=== PATIENT | male | born 1955 | race Caucasian/White ===

== ENCOUNTER 2023-10-23 10:25 | Day surgery (SDC) | payer MEDICARE ==
[2023-10-23] MEDS ORDERED: MIDAZOLAM 2 MG/2 ML VIAL ONE (10:52)
[2023-10-23] MEDS: LACTATED RINGERS 1,000 ML IV ONE ×2 (10:52→11:44)
--- NOTE | 2023-10-23 11:18 | ANESTHESIA ---
Pre-Anesthesia VS, & Labs - Diagnosis hx of colon ca - Procedure colonoscopy Vital Signs: Temp Pulse Resp BP Pulse Ox O2 Flow Rate 36.5 C 76 16 154/79 H 97 10/23/23 10:44 10/23/23 10:44 10/23/23 10:44 10/23/23 10:44 10/23/23 10:44 Height: 6 ft 1 in Weight (kg): 105.6 kg Body Mass Index: 30.7 BMI Classification: Obese - NPO >8 hours Last Fluid Intake: am prep - Lab Results Lab results reviewed: Yes Home Medications and Allergies Losartan/Hydrochlorothiazide [Hyzaar 50-12.5 Tablet] 1 each PO DAILY 08/20/23 Mecobalamin [B12 Active] 1,000 mcg PO DAILY 08/20/23 Rosuvastatin Calcium [Crestor] 10 mg PO DAILY 08/20/23 Sildenafil Citrate [Sildenafil] 20 mg PO PRN PRN 08/20/23 Allergies/Adverse Reactions: Allergies Allergy/AdvReac Type Severity Reaction Status Date / Time Penicillins Allergy Rash Verified 10/22/23 13:21 Anes History & Medical History - Anesthetic History Anesthesia Complications: reports: No previous complications Family history of Anesthesia Complications: Denies Family history of Malignant Hyperthermia: Denies - Medical History Cardiovascular: reports: Hypertension, High cholesterol Pulmonary: reports: None Gastrointestinal: reports: None Urinary: reports: None Musculoskeletal: reports: Osteoarthritis Endocrine/Autoimmune: reports: None Skin: reports: None - Surgical History General: reports: Bowel surgery Exam General: Alert, Oriented x3, Cooperative Dental: WNL Mouth Openin Fingerbreadth Neck Mobility: Normal Mallampati classification: II Thyromental Distance: 4-6 cm Respiratory: Lungs clear, Normal breath sounds, No respiratory distress Cardiovascular: Regular rate Neurological: Normal speech Mental/Cognitive Status: Alert/Oriented X3, Normal for patient Cognitive Status: Within normal limits Plan Anesthesia Type: Total IV Consent for Procedure(s) Verified and Reviewed: Yes Code Status: Attempt Resuscitation ASA classification: 2-Mild systemic disease Is this case an emergency?: No
[2023-10-23] MEDS: SIMETHICONE 40 MG/0.6 ML 15 ML BOTTLE PO ONE (11:31)
--- NOTE | 2023-10-23 11:50 | ANESTHESIA POST OP EVALUATION ---
Anesthesia Post Eval - Post Anesthesia Eval Vitals: Last Vital Signs Temp 36.5 C 10/23/23 10:44 Pulse 76 10/23/23 10:44 Resp 16 10/23/23 10:44 BP 154/79 H 10/23/23 10:44 Pulse Ox 97 10/23/23 10:44 O2 Flow Rate CV Function Including HR & BP: Stable Pain Control: Satisfactory Nausea & Vomiting: Negative Mental Status: Baseline Respiratory Status: Airway Patent Hydration Status: Satisfactory Anesthesia Complications: None
[2023-10-23 12:04] VITALS: BP 109/61
[2023-10-23 12:14] VITALS: O2SAT 57
== END 2023-10-23 10:26 | disposition home or self-care (01) ==
LOC: SDS 10:25
PROVIDERS: ATTEND Surgery
DX: Z12.11 Encounter for screening for malignant neoplasm of colon (principal); Z85.038 Personal history of other malignant neoplasm of large intestine; Z90.49 Acquired absence of other specified parts of digestive tract; Z87.891 Personal history of nicotine dependence; I10 Essential (primary) hypertension; E11.9 Type 2 diabetes mellitus without complications; E78.5 Hyperlipidemia, unspecified; Z98.0 Intestinal bypass and anastomosis status; E66.9 Obesity, unspecified; Z68.30 Body mass index [BMI] 30.0-30.9, adult
CPT/HCPCS: A9270; G0105; J7120

== ENCOUNTER 2025-05-15 15:00 | Inpatient (IN) ==
--- OUTSIDE RECORDS SUMMARY | 2025-05-15 15:17 | EXTERNAL MEDICAL SUMMARY RPT | Continuity of Care Document ---
Author Organization [place] Address [address] [address] Phone Problems date description facility 2025-03-02 08:29 Malignant neoplasm of colon, un specified [email or web address] 2025-03-02 15:25 Encounter for follow -up examination after completed treatment for malignant neoplasm [email or web address] 2025-03-03 00:03 Malignant neoplasm of colon, un specified [facility] 2025-03-08 06:54 Malignant neoplasm of colon, un specified [facility] 2025-03-08 06:54 Deficiency of other specified B group vitamins [email or web address] 2025-03-08 06:54 Drug-induced polyneuropathy [facility] 2025-03-08 06:54 Adverse effect of an tineoplastic and immunosuppressive drugs, initial encounter [email or web address] 2025-03-08 06:54 Encounter for genera l adult medical examination without abnormal findings [email or web address] 2025-03-08 06:54 Encounter for follow -up examination after completed treatment for malignant neoplasm [email or web address] Results/Labs test date facility value unit notes Result panel 1 NUCLEATED RED BLOOD CELLS AUTO 2025-03-02 08:41 [facility] 0.0 /100wbc (missing) BASOPHILS # (AUTO) 2025-03-02 08:41 [facility] 0.0 10 3/ul (missing) NRBC ABSOLUTE COUNT (AUTO) 2025-03-02 08:41 [facility] 0.00 x10 3/ul (missing) EOSINOPHILS # (AUTO) 2025-03-02 08:41 [facility] 0.1 10 3/ul (missing) MONOCYTES # (AUTO) 2025-03-02 08:41 [facility] 0.4 10 3/ul (missing) CREATININE 2025-03-02 08:41 [facility] 1.0 mg/dl As of March 2023 testing method has changed, this may include reference ranges. BILIRUBIN,TOTAL 2025-03-02 08:41 [facility] 1.1 mg /dl As of March 2023 testing method has changed, this may include reference ranges. LYMPHOCYTES # (AUTO) 2025-03-02 08:41 [facility] 1.2 10 3/ul (missing) ALBUMIN/GLOBULIN RATIO 2025-03-02 08:41 [facility] 1.8 (missing) (missing) MEAN PLATELET VOLUME 2025-03-02 08:41 [facility] 10.2 fl (missing) CHLORIDE 2025-03-02 08:41 [facility] 104 mmol/l As of March 2023 testing method has changed, this may include reference ranges. RED CELL DISTRIBUTION WIDTH 2025-03-02 08:41 [facility] 11.9 % (missing) GLUCOSE 2025-03-02 08:41 [facility] 130 mg/dl As of March 2023 testing method has changed, this may include reference ranges. SODIUM 2025-03-02 08:41 [facility] 138 mmol/l (missing) HGB - HEMOGLOBIN 2025-03-02 08:41 [facility] 14.5 g /dl (missing) PLT - PLATELET COUNT 2025-03-02 08:41 [facility] 165 10 3/ul (missing) ALT ALANINE AMINOTRANSFERASE 2025-03-02 08:41 [facility] 18 iu/l As of March 2023 testing method has changed, this may include reference ranges. GLOBULIN 2025-03-02 08:41 [facility] 2.4 g/dl (missing) NEUTROPHILS # (AUTO) 2025-03-02 08:41 [facility] 2.8 10 3/ul (missing) BUN - BLOOD UREA NITROGEN 2025-03-02 08:41 [facility] 21 mg/dl As of Mar testing method has changed, this may include reference ranges. AST ASPARTATE AMINOTRANSFERASE 2025-03-02 08:41 [facility] 22 iu/l As of March 2023 testing method has changed, this may include reference ranges. CARBON DIOXIDE - CO2 2025-03-02 08:41 [facility] 28 mmol/l As of March 2023 testing method has changed, this may include reference ranges. CEA - CARCINOEMBRYONIC ANTIGEN 2025-03-02 08:41 [facility] 3.6 ng/ml Social History date description facility
[2025-05-15 15:23] LABS: HCT - HEMATOCRIT 51.2 % (42.0-52.0); HGB - HEMOGLOBIN 17.2 g/dL (14.0-18.0); MEAN PLATELET VOLUME 10.5 fL (7.4-11.4); NRBC ABSOLUTE COUNT (AUTO) 0.00 x10^3/uL; NUCLEATED RED BLOOD CELLS AUTO 0.0 /100WBC; PLT - PLATELET COUNT 202 10^3/uL (130-450); RED CELL DISTRIBUTION WIDTH 12.6 % (12.0-15.0)
--- NOTE | 2025-05-15 15:42 | ED Physician Documentation ---
History of Present Illness Stated complaint Stated Complaint: PX,N/V/D Chief complaint Chief Complaint: Abd Pain History obtained from History obtained from: Patient Additonal information Additional information: 69-year-old gentleman with history of 2 colon resections in the past for cancer developed symptomatic COVID 6 days ago. He was getting better but starting last night he developed initially left and then central abdominal pain associated with vomiting and lack of bowel movements and really no flatus. No history of SBO in the past. Meds/Allgy Home Medications Ambulatory Orders Medication Instructions Recorded Confirmed losartan 50 mg-hydrochlorothiazide 1 ea PO DAILY 08/2003/02/25 12.5 mg tablet (Hyzaar) mecobalamin (vitamin B12) 1,000 1,000 mcg PO DAILY 03/02/25 mcg chewable tablet (B12 Active) rosuvastatin 10 mg tablet (Crestor) 10 mg PO DAILY 03/02/25 sildenafil (pulm.hypertension) 20 20 mg PO PRN PRN As Needed Per 08/20/23 03/02/25 mg tablet Provider Orders cholecalciferol (vitamin D3) 100 100 mcg PO QDAY 03/0203/02/25 mcg (4,000 unit) tablet Allergies Allergies Allergy/AdvReac Type Severity Reaction Status Date / Time Penicillins Allergy Rash Verified 05/15/25 15:04 PFSH Active Problems All Active Problems (Updated 05/15/25 @ 18:10 by Aneesh Hartley MD) COVID-19 (Acute) Acute hypoxemic respiratory failure (Acute) Small bowel obstruction (Acute) Healthcare maintenance (Acute) Vitamin B12 deficiency (Acute) Chemotherapy-induced peripheral neuropathy (Acute) 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 (Date/Year): 1985 Number of Years Smoked: 15 Patient requests smoking cessation consult: No Marital Status: Support Person: Yes How many days per week?: 6 Do you feel safe in your home environment?: Yes History of physical, verbal, emotional, or financial abuse?: No ETOH Use: Wine and Beer Service: No Exam Exam Vital Signs: Vital Signs x48h Temp Pulse Resp BP Pulse Ox O2 Flow Rate 05/15/25 17:32 95 2 05/15/25 17:30 85 L 05/15/25 17:00 87 20 146/88 H 95 05/15/25 16:07 95 2 05/15/25 16:07 87 L 05/15/25 15:50 37.2 C 78 78 H 161/88 H 92 05/15/25 15:02 36.6 C 87 18 151/94 H 95 Constitutional normal general appearance and no apparent distress Gastrointestinal Absent bowel sounds, mild diffuse tenderness without surgical signs. Results Vitals Vitals: Vital Signs - 24 hr 05/15/25 15:02 05/15/25 15:50 05/15/25 15:53 Temperature 36.6 C 37.2 C Temperature Source Temporal Artery Scan Oral Pulse Rate 87 78 Respiratory Rate 18 78 H Blood Pressure 151/94 H 161/88 H O2 Saturation 95 92 O2 Source Room air Room air If not protocol: Oxygen Flow, liters/minute Pain Intensity 4 6 05/15/25 16:07 05/15/25 16:07 05/15/25 16:30 Temperature Temperature Source Pulse Rate Respiratory Rate Blood Pressure O2 Saturation 87 L 95 O2 Source Room air Nasal cannula If not protocol: Oxygen Flow, liters/minute 2 Pain Intensity 1 05/15/25 17:00 05/15/25 17:30 05/15/25 17:32 Temperature Temperature Source Pulse Rate 87 Respiratory Rate 20 Blood Pressure 146/88 H O2 Saturation 95 85 L 95 O2 Source Room air Room air Nasal cannula If not protocol: Oxygen Flow, liters/minute 2 Pain Intensity Oxygen O2 Source Nasal cannula Labs Labs: Laboratory Tests 05/15/25 05/15/25 15:18 17:00 WBC 7.0 RBC 5.39 Hgb 17.2 Hct 51.2 MCV 95.0 H MCH 31.9 H MCHC 33.6 RDW 12.6 Plt Count 202 MPV 10.5 Neut # (Auto) 5.6 Lymph # (Auto) 0.7 L [place] # (Auto) 0.7 Eos # (Auto) 0.0 Baso # (Auto) 0.0 Absolute Nucleated RBC 0.00 Nucleated RBC % 0.0 Sodium 136 Potassium 4.2 Chloride 93 L Carbon Dioxide 30 Anion Gap 13.0 BUN 31 H Creatinine 1.5 H Estimated GFR (MDRD) 46 L Glucose 150 H Calcium 10.5 H Total Bilirubin 1.2 H AST 24 ALT 20 Alkaline Phosphatase 72 Total Protein 8.7 Albumin 5.3 Globulin 3.4 Albumin/Globulin Ratio 1.6 Lipase 12 Urine Color DARK YELLOW Urine Clarity CLEAR Urine pH 6.0 Ur Specific [place] >=1.030 H Urine Protein NEGATIVE Urine Glucose (UA) NEGATIVE Urine Ketones NEGATIVE Urine Occult Blood NEGATIVE Urine Nitrite NEGATIVE Urine Bilirubin NEGATIVE Urine Urobilinogen 0.2 (NORMAL) Ur Leukocyte Esterase NEGATIVE Ur Microscopic Review NOT INDICATED Urine Culture Comments NOT INDICATED PD Medical Decision Making ED course ED course: 69-year-old gent with history of couple colonic resections presents with signs and symptoms very consistent with small bowel obstruction. Workup demonstrates an unremarkable CBC. CMP showing some TOMEKA. CT demonstrating obstruction versus ileus. He was comfortable after milligram of Dilaudid and 4 mg of Zofran here. Interestingly, he does have an oxygen requirement here despite not being narcotized, suspect that is from his COVID as opposed to the Dilaudid he got. Woke with Dr. Ross who will follow along and Dr. Umesh Granados for admission at 6:10 PM. The patient and family are counseled as to the diagnosis and need for admission. This document was made in part using voice recognition software, while efforts are made to proofread this document, sound alike an grammatical errors may occur. Discharge Plan Discharge Patient Disposition: 66 [facility] DC/Xfer Condition: Serious Clinical Impression: Small bowel obstruction, Acute hypoxemic respiratory failure, COVID-19 Prescriptions: No Action losartan-hydrochlorothiazide [Hyzaar] 1 EACH tablet 1 ea PO DAILY rosuvastatin [Crestor] 10 MG tablet 10 mg PO DAILY sildenafil (pulm.hypertension) 20 MG tablet 20 mg PO PRN PRN (Reason: As Needed Per Provider Orders) mecobalamin (vitamin B12) [B12 Active] 1,000 MCG tablet,chewable 1,000 mcg PO DAILY cholecalciferol (vitamin D3) 100 mcg (4,000 unit) tablet 100 mcg PO QDAY Print Language: Ecuadorean
[2025-05-15 15:49] LABS: ALT ALANINE AMINOTRANSFERASE 20.0 IU/L (10-60); AST ASPARTATE AMINOTRANSFERASE 24.0 IU/L (10-42); BUN - BLOOD UREA NITROGEN 31.0 mg/dL (6-20); CARBON DIOXIDE - CO2 30.0 mmol/L (21-32); CREATININE 1.5 mg/dL (0.6-1.3); GFR - MDRD 46.0 (>89)
[2025-05-15] MEDS: SODIUM CHLORIDE 0.9% 1,000 ML IV STA (15:51)
[2025-05-15] MEDS: ONDANSETRON 4 MG/2 ML VIAL IVP STA (15:53)
[2025-05-15] MEDS: HYDROmorphone 1 MG/ML CARPUJECT IVP STA (15:53)
[2025-05-15 17:11] LABS: GLUCOSE, URINE (UA) NEGATIVE (NEGATIVE); KETONES,URINE (UA) NEGATIVE (NEGATIVE); OCCULT BLOOD,URINE NEGATIVE (NEGATIVE)
--- NOTE | 2025-05-15 18:02 | CT Report ---
PROCEDURE: CT Abdomen/Pelvis W INDICATIONS: IV only, abd pain, ?sbo CONTRAST: 100ml omni 300 TECHNIQUE: After the administration of intravenous contrast, a CT scan of the abdomen and pelvis was performed. Images were recorded and evaluated at appropriate window settings. Reformats: coronal and sagittal. For radiation dose reduction, the following was used: automated exposure control, adjustment of mA and/or kV according to patient size. COMPARISON: 10/29/2023. FINDINGS: Image quality: Diagnostic. Lower chest: Unremarkable. Liver: No solid mass. Gallbladder: Unremarkable. Biliary tree: No intrahepatic or extrahepatic dilation, accounting for age. Spleen: No splenomegaly. Pancreas: No pancreatic ductal dilation. Adrenals: No adrenal nodule. Kidneys and ureters: No hydronephrosis. No renal cystic lesion which requires follow up. No solid mass. Stomach, bowel and peritoneum: There are multiple mildly dilated and distended loops of bowel measuring up to 4.2 cm in diameter. Multiple transition points are seen throughout the abdomen, some of which have a gradual appearance. Postsurgical changes of prior bowel resection are shown at the cecum and sigmoid colon. Lymph nodes: No central or retroperitoneal adenopathy. Vessels: No infrarenal aortic aneurysm. Patent portal vein. PELVIS Reproductive organs: Unremarkable. Bladder: No abnormal wall thickening. Pelvic lymph nodes: No pelvic adenopathy by size criteria. Bones: No aggressive osseous abnormality. Other: No significant ventral or inguinal hernia. IMPRESSION: Small bowel findings consistent with obstruction versus ileus. Reviewed by: Vanessa Hammer MD on 05/15/2025 5:01 PM SILVIA Approved by: Vanessa Hammer MD on 05/15/2025 5:01 PM AKDT Station ID: [id number]
[2025-05-15] MEDS ORDERED: DIATR MEGLU/DIATRIZOATE SODIUM 120 ML BOTTLE ONE (18:23)
--- NOTE | 2025-05-15 19:09 | HISTORY & PHYSICAL EXAMINATION ---
Chief Complaint Chief Complaint Chief Complaint: Abdominal pain History of Present Illness Admitted From Admitted From:: Home with History Obtained From History obtained from: Patient interview History of Present Illness HPI Comment/Other: 69-year-old male history of hypertension, colon cancer status post resection x 2 who began experiencing upper respiratory symptoms from COVID 6 days ago. He reported that his upper respiratory symptoms have improved, but starting last night he felt left-sided abdominal pain with significant amount of vomiting and no flatus. He has never had small bowel obstruction before. He reports that he had fevers and chills from his COVID, but those have improved. In the ER, workup was significant for a creatinine of 1.5, up from baseline of 1. No leukocytosis, UA clear. CT abdomen/pelvis was performed which showed small bowel ileus versus obstruction. General surgery was contacted by ER provider, who agrees to follow. Patient was also noted to be hypoxic in the ER, requiring 2 L O2. Hospitalist was contacted for admission for COVID with hypoxia in addition to small bowel obstruction Meds/Allgy Home Medications Ambulatory Orders Medication Instructions Recorded Confirmed losartan 50 mg-hydrochlorothiazide 1 ea PO DAILY 08/2003/02/25 12.5 mg tablet (Hyzaar) mecobalamin (vitamin B12) 1,000 1,000 mcg PO DAILY 03/02/25 mcg chewable tablet (B12 Active) rosuvastatin 10 mg tablet (Crestor) 10 mg PO DAILY 03/02/25 sildenafil (pulm.hypertension) 20 20 mg PO PRN PRN As Needed Per 08/20/23 03/02/25 mg tablet Provider Orders cholecalciferol (vitamin D3) 100 100 mcg PO QDAY 03/0203/02/25 mcg (4,000 unit) tablet Allergies Allergies Allergy/AdvReac Type Severity Reaction Status Date / Time Penicillins Allergy Rash Verified 05/15/25 15:04 PFSH Active Problems All Active Problems (Updated 05/15/25 @ 19:14 by ) COVID-19 (Acute) Acute hypoxemic respiratory failure (Acute) Small bowel obstruction (Acute) Healthcare maintenance (Acute) Vitamin B12 deficiency (Acute) Chemotherapy-induced peripheral neuropathy (Acute) 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 (Date/Year): 1985 Number of Years Smoked: 15 Patient requests smoking cessation consult: No Marital Status: Support Person: Yes How many days per week?: 6 Do you feel safe in your home environment?: Yes History of physical, verbal, emotional, or financial abuse?: No ETOH Use: Wine and Beer Service: No POLST Patient has POLST: No Review of Systems He reports COVID symptoms starting several days ago and improved, including fevers, chills, dyspnea, cough He reports abdominal symptoms including nausea/vomiting, abdominal pain, lack of bowel movement/flatus starting last night Status of ROS: 10 or more systems reviewed and unremarkable except as noted in history and below Exam Exam Vital Signs: Vital Signs x48h Temp Pulse Resp BP Pulse Ox O2 Flow Rate 05/15/25 18:34 153/84 H 05/15/25 18:29 71 16 64 L 2 05/15/25 17:32 95 2 05/15/25 17:30 85 L 05/15/25 17:00 87 20 146/88 H 95 05/15/25 16:07 95 2 05/15/25 16:07 87 L 05/15/25 15:50 37.2 C 78 78 H 161/88 H 92 05/15/25 15:02 36.6 C 87 18 151/94 H 95 Constitutional normal general appearance and no apparent distress [facility] normocephalic Eyes PERRL Neck/C-Spine visual inspection normal Lymph no lymphadenopathy noted Chest inspection of chest normal Respiratory breath sounds equal bilaterally and normal respiratory effort Cardiovascular normal heart rate noted and regular rhythm noted Gastrointestinal abdomen normal to inspection and abdomen soft to palpation Some tenderness to palpation on the left. Hypoactive bowel sounds Extremities normal to inspection Neurology GCS 15 Psychiatry oriented x3 Skin skin color normal Conclusion/Plan Problem List (1) Acute hypoxemic respiratory failure: Plan: Hypoxemic respiratory failure secondary to COVID-19, manage as below O2 as needed (2) Small bowel obstruction: Plan: CT abdomen/pelvis shows small bowel obstruction versus ileus Surgery contacted by ER provider I have ordered Gastrografin challenge N.p.o. until return of bowel function (3) COVID-19: Plan: Reports testing positive for COVID several days ago He now has an oxygen requirement Decadron 6 mg p.o. daily DuoNeb as needed Check procalcitonin Check chest x-ray Plan Admit inpatient med floor Full code His is his surrogate decision maker Lab Results Lab results reviewed: Yes 05/15/25 15:18 05/15/25 15:18 Diagnostic Imaging Results Diagnostic Imaging Results: positive Final report reviewed Core Measures Anticipated LOS I expect patient to be DC'd or transferred within 96 hours.: Yes DVT/VTE - Prophylaxis VTE/DVT Prophylaxis med ordered at admit?: Yes
--- OUTSIDE RECORDS SUMMARY | 2025-05-15 19:16 | EXTERNAL MEDICAL SUMMARY RPT | Continuity of Care Document ---
Author Organization [place] Address [address] [address] Phone Problems date description facility 2025-03-02 08:29 Malignant neoplasm of colon, un specified [facility] 2025-03-02 15:25 Encounter for follow -up examination after completed treatment for malignant neoplasm [facility] 2025-03-03 00:03 Malignant neoplasm of colon, un specified [facility] 2025-03-08 06:54 Malignant neoplasm of colon, un specified [facility] 2025-03-08 06:54 Deficiency of other specified B group vitamins [facility] 2025-03-08 06:54 Drug-induced polyneuropathy [facility] 2025-03-08 06:54 Adverse effect of an tineoplastic and immunosuppressive drugs, initial encounter [facility] 2025-03-08 06:54 Encounter for genera l adult medical examination without abnormal findings [facility] 2025-03-08 06:54 Encounter for follow -up examination after completed treatment for malignant neoplasm [facility] Results/Labs test date facility value unit notes Result panel 1 NUCLEATED RED BLOOD CELLS AUTO 2025-03-02 08:41 [facility] 0.0 /100wbc (missing) BASOPHILS # (AUTO) 2025-03-02 08:41 [facility] 0.0 10 3/ul (missing) NRBC ABSOLUTE COUNT (AUTO) 2025-03-02 08:41 [facility] 0.00 x10 3/ul (missing) EOSINOPHILS # (AUTO) 2025-03-02 08:41 [facility] 0.1 10 3/ul (missing) MONOCYTES # (AUTO) 2025-03-02 08:41 [facility] 0.4 10 3/ul (missing) CREATININE 2025-03-02 08:41 [facility] 1.0 mg/dl As of March 2023 testing method has changed, this may include reference ranges. BILIRUBIN,TOTAL 2025-03-02 08:41 [facility] 1.1 mg /dl As of March 2023 testing method has changed, this may include reference ranges. LYMPHOCYTES # (AUTO) 2025-03-02 08:41 [facility] 1.2 10 3/ul (missing) ALBUMIN/GLOBULIN RATIO 2025-03-02 08:41 [facility] 1.8 (missing) (missing) MEAN PLATELET VOLUME 2025-03-02 08:41 [facility] 10.2 fl (missing) CHLORIDE 2025-03-02 08:41 [facility] 104 mmol/l As of March 2023 testing method has changed, this may include reference ranges. RED CELL DISTRIBUTION WIDTH 2025-03-02 08:41 [facility] 11.9 % (missing) GLUCOSE 2025-03-02 08:41 [facility] 130 mg/dl As of March 2023 testing method has changed, this may include reference ranges. SODIUM 2025-03-02 08:41 [facility] 138 mmol/l (missing) HGB - HEMOGLOBIN 2025-03-02 08:41 [facility] 14.5 g /dl (missing) PLT - PLATELET COUNT 2025-03-02 08:41 [facility] 165 10 3/ul (missing) ALT ALANINE AMINOTRANSFERASE 2025-03-02 08:41 [facility] 18 iu/l As of March 2023 testing method has changed, this may include reference ranges. GLOBULIN 2025-03-02 08:41 [facility] 2.4 g/dl (missing) NEUTROPHILS # (AUTO) 2025-03-02 08:41 [facility] 2.8 10 3/ul (missing) BUN - BLOOD UREA NITROGEN 2025-03-02 08:41 [facility] 21 mg/dl As of Mar testing method has changed, this may include reference ranges. AST ASPARTATE AMINOTRANSFERASE 2025-03-02 08:41 [facility] 22 iu/l As of March 2023 testing method has changed, this may include reference ranges. CARBON DIOXIDE - CO2 2025-03-02 08:41 [facility] 28 mmol/l As of March 2023 testing method has changed, this may include reference ranges. CEA - CARCINOEMBRYONIC ANTIGEN 2025-03-02 08:41 [facility] 3.6 ng/ml Social History date description facility
[2025-05-15] MEDS ORDERED: IPRATROPIUM/ALBUTEROL 3 ML NEB INH PRN (20:27)
[2025-05-15] MEDS ORDERED: SODIUM CHLORIDE FLUSH 0.9% 10 ML SYRINGE IVP PRN (20:27)
[2025-05-15] MEDS: ACETAMINOPHEN 325 MG TABLET PO PRN (20:55)
[2025-05-15] MEDS: LACTATED RINGERS 1,000 ML IV SCH (20:58)
[2025-05-15] MEDS: DIATR MEGLU/DIATRIZOATE SODIUM 120 ML BOTTLE PO ONE (21:38)
[2025-05-15] MEDS: SODIUM CHLORIDE FLUSH 0.9% 10 ML SYRINGE IVP SCH (23:23)
--- NOTE | 2025-05-15 23:30 | XRAY Report ---
PROCEDURE: XR SBFT Challenge Panel INDICATIONS: SBO COMPARISON: Radiographs earlier today at 6:[address] abdomen and pelvis earlier today at 4:37 PM. CONTRAST: Administered earlier. FINDINGS: Images immediately after administration of oral contrast, 15 minutes, and 2 hours and 4.5 hours. There is excreted contrast in the urinary bladder. There is contrast in the renal collecting system. There are multiple clips in the lower abdomen. Presumable structure overlying the left upper thigh. There is persistent oral contrast in the stomach. There is persistent dilated loops of small bowel in the left abdomen containing contrast. No significant contrast is identified in the colon. IMPRESSION: Persistent dilated loops of small bowel in the left abdomen containing oral contrast. Findings most consistent with small bowel obstruction. Reviewed by: Remigio Pabon MD on 05/15/2025 11:29 PM PDT Approved by: Remigio Pabon MD on 05/15/2025 11:29 PM PDT Station ID: [id number]
[2025-05-15] MEDS: ONDANSETRON ODT 4 MG TABLET TL PRN (23:35)
[2025-05-16] MEDS ORDERED: MORPHINE 10 MG/ML VIAL IVP ONE (00:23)
[2025-05-16] MEDS: MORPHINE 2 MG/ML CARPUJECT IVP SCH (00:51)
[2025-05-16] MEDS ORDERED: MORPHINE 2 MG/ML CARPUJECT IVP SCH (01:00)
--- NOTE | 2025-05-16 01:03 | XRAY Report ---
PROCEDURE: XR Chest 1V INDICATIONS: Hypoxia, COVID TECHNIQUE: One view of the chest was acquired. COMPARISON: CT chest 11/03/2024. FINDINGS: Surgical changes and devices: None. Lungs and pleura: No pleural effusions or pneumothorax. No consolidation. ML streaky opacity in the left lower lung. Mediastinum: Mediastinal contours appear normal. Heart size is normal. Bones and chest wall: No suspicious bony lesions. Overlying soft tissues appear unremarkable. IMPRESSION: No consolidation. Minimal streaky opacity at the left lung base. This could represent atelectasis or scarring. Difficult to exclude infectious/inflammatory etiology. Reviewed by: Remigio Pabon MD on 05/16/2025 1:02 AM PDT Approved by: Remigio Pabon MD on 05/16/2025 1:02 AM PDT Station ID: [id number]
[2025-05-16] MEDS: ONDANSETRON 4 MG/2 ML VIAL IVP PRN (04:29)
[2025-05-16 05:31] LABS: HCT - HEMATOCRIT 47.2 % (42.0-52.0); HGB - HEMOGLOBIN 16.1 g/dL (14.0-18.0); MEAN PLATELET VOLUME 10.4 fL (7.4-11.4); NRBC ABSOLUTE COUNT (AUTO) 0.00 x10^3/uL; NUCLEATED RED BLOOD CELLS AUTO 0.0 /100WBC; PLT - PLATELET COUNT 179 10^3/uL (130-450); RED CELL DISTRIBUTION WIDTH 12.7 % (12.0-15.0)
[2025-05-16 05:47] LABS: BUN - BLOOD UREA NITROGEN 32.0 mg/dL (6-20); CARBON DIOXIDE - CO2 30.0 mmol/L (21-32); CREATININE 1.1 mg/dL (0.6-1.3); GFR - MDRD 66.0 (>89)
[2025-05-16] MEDS: MORPHINE 2 MG/ML CARPUJECT IVP PRN (08:15)
[2025-05-16] MEDS: PROCHLORPERAZINE 10 MG/2 ML VIAL IVP PRN (08:16)
--- NOTE | 2025-05-16 09:23 | PHARMACY PROGRESS NOTE ---
Best Possible Medication History Admit Date and Time: 05/15/25 [id number] Home Medications Medication Instructions Recorded Confirmed Type losartan 50 mg-hydrochlorothiazide 1 ea PO DAILY 08/2005/16/25 History 12.5 mg tablet (Hyzaar) mecobalamin (vitamin B12) 1,000 1,000 mcg PO DAILY 05/16/25 History mcg chewable tablet (B12 Active) rosuvastatin 10 mg tablet (Crestor) 10 mg PO Q48H 08/0205/16/25 History cholecalciferol (vitamin D3) 100 100 mcg PO QDAY 03/0205/16/25 History mcg (4,000 unit) tablet pyridoxine (vitamin B6) 100 mg 100 mg PO DAILY 5 05/16/25 History tablet (Vitamin B-6) Processed by: Pharmacy Medications reviewed in ED?: No Medication History completed: Yes Patient Interview: Completed Secondary Source(s): Pharmacy records and Insurance records [facility] Statement: As the person ultimately responsible for medication therapy, providers are able to order a medication from an existing home medication list in [facility] via the "Reconcile Routine" prior to Confirmation of that medication by sales support associate. Such practice is discouraged except when the physician, in their clinical judgment, deems that a medical need exists for a medication without regard to previous use.
--- NOTE | 2025-05-16 12:34 | PROVIDER PROGRESS NOTE ---
Subjective Prog Note Date Prog Note Date: 05/16/25 Subjective Pt reports feeling: No change Current Medications Current Medications Current Medications: Current Medications Generic Name Dose Route Start Last Admin Trade Name Freq PRN Reason Stop Dose Admin Acetaminophen 650 mg 05/15/25 20:27 05/16/25 04:29 Acetaminophen 325 Mg Tablet PO 650 mg Q4HR PRN Administration Pain 1 to 4, or Fever Albuterol/Ipratropium 3 ml 05/15/25 20:27 Ipratropium/Albuterol 3 Ml Neb INH Q4HR PRN Wheezing Dexamethasone 6 mg 05/15/25 19:05 05/16/25 08:16 Dexamethasone 4 Mg Tablet PO 6 mg DAILY JON Administration Enoxaparin Sodium 40 mg 05/16/25 21:00 Enoxaparin 40 Mg/0.4 Ml Syringe SUBQ DAILY JON Lactated Ringer's 1,000 mls @ 100 mls/hr 05/15/25 20:27 05/16/25 04:28 Lr IV 100 mls/hr .Q10H JON Administration Morphine Sulfate 2 mg 05/16/25 08:05 05/16/25 08:15 Morphine 2 Mg/Ml Carpuject IVP 2 mg Q4H PRN Administration Severe Pain (Level 7-10) Ondansetron HCl 4 mg 05/15/25 20:27 05/15/25 23:35 Ondansetron Odt 4 Mg Tablet TL 4 mg Q6HR PRN Administration Nausea / Vomiting Ondansetron HCl 4 mg 05/15/25 20:27 05/16/25 04:29 Ondansetron 4 Mg/2 Ml Vial IVP 4 mg Q6HR PRN Administration Nausea / Vomiting Prochlorperazine Edisylate 10 mg 05/16/25 07:23 05/16/25 08:16 Prochlorperazine 10 Mg/2 Ml Vial IVP 10 mg Q6HR PRN Administration Nausea / Vomiting Sodium Chloride 10 ml 05/15/25 20:27 Sodium Chloride Flush 0.9% 10 Ml Syringe IVP PRN PRN NEEDED PER PROVIDER ORDERS Sodium Chloride 10 ml 05/16/25 01:00 05/16/25 08:16 Sodium Chloride Flush 0.9% 10 Ml Syringe IVP 10 ml 0100,0900,1700 JON Administration Objective Vital Signs/Intake & Output Reviewed Vital Signs: Yes Vital Signs: Vital Signs x48h Temp Pulse Resp BP Pulse Ox O2 Flow Rate 05/16/25 08:10 2 05/16/25 08:10 37.1 C 52 L 18 165/74 H 95 2 Intake & Output: Intake & Output 05/13/25 05/14/25 05/15/25 05/16/25 23:59 23:59 23:59 23:59 Intake Total 1000 / 1000 750 / 750 Balance 1000 / 1000 750 / 750 Weight (kg) 104.78 kg Objective General Appearance: positive No acute distress and Alert Eyes Bilateral: positive Normal inspection ENT: positive ENT inspection nml Neck: positive Nml inspection Respiratory: positive Chest non-tender Cardiovascular: positive Regular rate & rhythm Abdomen: positive Other (Central and left-sided abdominal tenderness. Not passing flatus. Intermittent nausea) Skin: positive Color nml Extremities: positive Non-tender Neurologic/Psychiatric: positive Oriented x3 Lab Results 05/16/25 04:53 05/16/25 04:53 Other Labs: Lab Results x24hrs 05/16/25 05/15/25 05/15/25 Range/Units 04:53 17:00 15:18 WBC 4.6 L 7.0 (4.8-10.8) x10^3/uL RBC 4.93 5.39 (4.70-6.10) 10^6/uL Hgb 16.1 17.2 (14.0-18.0) g/dL Hct 47.2 51.2 (42.0-52.0) % MCV 95.7 H 95.0 H (80.0-94.0) fL MCH 32.7 H 31.9 H (27.0-31.0) pg MCHC 34.1 33.6 (32.0-36.0) g/dL RDW 12.7 12.6 (12.0-15.0) % Plt Count 179 202 (130-450) 10^3/uL MPV 10.4 10.5 (7.4-11.4) fL Neut # (Auto) 3.7 5.6 (1.5-6.6) 10^3/uL Lymph # (Auto) 0.5 L 0.7 L (1.5-3.5) 10^3/uL [place] # (Auto) 0.4 0.7 (0.0-1.0) 10^3/uL Eos # (Auto) 0.0 0.0 (0.0-0.7) 10^3/uL Baso # (Auto) 0.0 0.0 (0.0-0.1) 10^3/uL Absolute Nucleated RBC 0.00 0.00 x10^3/uL Nucleated RBC % 0.0 0.0 /100WBC Sodium 136 136 (135-145) mmol/L Potassium 4.1 4.2 (3.5-4.5) mmol/L Chloride 97 L 93 L (101-111) mmol/L Carbon Dioxide 30 30 (21-32) mmol/L Anion Gap 9.0 13.0 (6-13) BUN 32 H 31 H (6-20) mg/dL Creatinine 1.1 1.5 H (0.6-1.3) mg/dL Estimated GFR (MDRD) 66 L 46 L (>89) Glucose 142 H 150 H (74-104) mg/dL Calcium 9.3 10.5 H (8.5-10.3) mg/dL Total Bilirubin 1.2 H (0.2-1.0) mg/dL AST 24 (10-42) IU/L ALT 20 (10-60) IU/L Alkaline Phosphatase 72 (42-121) IU/L Total Protein 8.7 (6.4-8.9) g/dL Albumin 5.3 (3.2-5.5) g/dL Globulin 3.4 (2.1-4.2) g/dL Albumin/Globulin Ratio 1.6 (1.0-2.2) Lipase 12 (11-82) U/L Procalcitonin Immunoas 0.20 (<0.5) ng/mL Urine Color DARK YELLOW Urine Clarity CLEAR (CLEAR) Urine pH 6.0 (5.0-7.5) PH Ur Specific [place] >=1.030 H (1.002-1.030) Urine Protein NEGATIVE (NEGATIVE) mg/dL Urine Glucose (UA) NEGATIVE (NEGATIVE) mg/dL Urine Ketones NEGATIVE (NEGATIVE) mg/dL Urine Occult Blood NEGATIVE (NEGATIVE) Urine Nitrite NEGATIVE (NEGATIVE) Urine Bilirubin NEGATIVE (NEGATIVE) Urine Urobilinogen 0.2 (NORMAL) (NORMAL) E.U./dL Ur Leukocyte Esterase NEGATIVE (NEGATIVE) Ur Microscopic Review NOT INDICATED Urine Culture Comments NOT INDICATED Assessment/Plan Problem List (1) Acute hypoxemic respiratory failure: Impression: Hypoxemic respiratory failure secondary to COVID-19, manage as below O2 as needed (2) Small bowel obstruction: Impression: CT abdomen/pelvis on presentation showed small bowel obstruction versus ileus SBFT shows small bowel obstruction Surgery following N.p.o. until return of bowel function Discussed treatment with patient including NG tube. He would very much like to avoid the NG tube. Will discuss this with surgery later today (3) COVID-19: Impression: Tested positive for COVID several days prior to admit He now has oxygen requirement Decadron 6 mg p.o. daily DuoNeb as needed Procalcitonin negative Chest x-ray with minimal streaky opacity at the left lung base possibly atelectasis versus infectious/inflammatory
--- NOTE | 2025-05-16 18:17 | XRAY Report ---
PROCEDURE: XR Chest for Line Placement INDICATIONS: NGT placement TECHNIQUE: One view of the chest was acquired. COMPARISON: None. FINDINGS: Surgical changes and devices: An enteric tube terminates within the stomach.. Lungs and pleura: No pleural effusions or pneumothorax. No consolidation. Mediastinum: Mediastinal contours appear normal. Heart size is normal. Bones and chest wall: No suspicious bony lesions. Overlying soft tissues appear unremarkable. IMPRESSION: Enteric tube terminating within the stomach.. Reviewed by: Vanessa Hammer MD on 05/16/2025 5:16 PM SILVIA Approved by: Vanessa Hammer MD on 05/16/2025 5:16 PM AKYASMIN Station ID: [id number]
--- NOTE | 2025-05-16 18:39 | CONSULTATION NOTE ---
Referring Provider Name of Referring Provider:: Vickey Velazquez DNP Consult Date: 05/16/25 Chief Complaint Chief Complaint Chief Complaint: Abdominal pain-bowel obstruction History of Present Illness Admitted From Admitted From:: ED History Obtained From Records Reviewed: Yes History obtained from: Patient, chart, Vickey Velazquez DNP Exam Limitations: None History of Present Illness HPI Comment/Other: Patient is a very pleasant 69-year-old male evaluated in room 2309 at the request of Vickey Velazquez for a bowel obstruction. The patient had been vacationing and was [place] in the mountains returning [place] home on the plane I believe on Saturday. He states that he caught a respiratory illness from the plane which turned out to be COVID. He was doing fine until yesterday where he had intractable nausea and vomiting which caused him to come to the emergency department and evaluation diagnosed him with a bowel obstruction. He has not had any bowel movement in the past 24 hours. This includes flatulence or stool. He denies hematemesis, melena or hematochezia. He denies unexpected weight loss. 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 This was of a higher grade and he completed a FOLFOX regimen. He has not had any bowel obstruction issues prior to this. He did have a somewhat prolonged postoperative course following his sigmoidectomy for which he received an NG tube but this is expected following surgery. As an aside he worked in [place] in [place] and recently retired. His initial colon surgery was in [place] (2005) with his subsequent operation in [place] (2021). [facility] Active Problems All Active Problems (Updated 05/16/25 @ 18:47 by Abdi Ross MD) COVID-19 (Acute) Acute hypoxemic respiratory failure (Acute) Small bowel obstruction (Acute) Healthcare maintenance (Acute) Vitamin B12 deficiency (Acute) Chemotherapy-induced peripheral neuropathy (Acute) Local recurrence of malignant neoplasm of colon (Acute) Surgical History Surgical History (Updated 05/16/25 @ 18:47 by Abdi Ross MD) History of open sigmoidectomy History of right hemicolectomy Social History Social History (Updated 11/10/24 @ 19:05 by Marcello Gilmore MD) Smoking Status: Former smoker If you are a former smoker, when did you quit? (Date/Year): 1985 Number of Years Smoked: 15 Do you dip or chew tobacco?: No Do you vape?: No Patient requests smoking cessation consult: No Marital Status: Support Person: Yes How many days per week?: 6 Level: Independent Do you feel safe in your home environment?: Yes History of physical, verbal, emotional, or financial abuse?: No ETOH Use: Wine and Beer Service: No POLST Patient has POLST: No Meds/Allgy Home Medications Ambulatory Orders Medication Instructions Recorded Confirmed losartan 50 mg-hydrochlorothiazide 1 ea PO DAILY 08/2005/16/25 12.5 mg tablet (Hyzaar) mecobalamin (vitamin B12) 1,000 1,000 mcg PO DAILY 05/16/25 mcg chewable tablet (B12 Active) rosuvastatin 10 mg tablet (Crestor) 10 mg PO Q48H 08/0205/16/25 cholecalciferol (vitamin D3) 100 100 mcg PO QDAY 03/0205/16/25 mcg (4,000 unit) tablet pyridoxine (vitamin B6) 100 mg 100 mg PO DAILY 5 05/16/25 tablet (Vitamin B-6) Allergies Allergies Allergy/AdvReac Type Severity Reaction Status Date / Time Penicillins Allergy Rash Verified 05/15/25 15:04 Results Lab Results Lab results reviewed: Yes 05/16/25 04:53 05/16/25 04:53 Other Lab Results: Lab Results x24hrs 05/16/25 05/15/25 Range/Units 04:53 15:18 WBC 4.6 L (4.8-10.8) x10^3/uL RBC 4.93 (4.70-6.10) 10^6/uL Hgb 16.1 (14.0-18.0) g/dL Hct 47.2 (42.0-52.0) % MCV 95.7 H (80.0-94.0) fL MCH 32.7 H (27.0-31.0) pg MCHC 34.1 (32.0-36.0) g/dL RDW 12.7 (12.0-15.0) % Plt Count 179 (130-450) 10^3/uL MPV 10.4 (7.4-11.4) fL Neut # (Auto) 3.7 (1.5-6.6) 10^3/uL Lymph # (Auto) 0.5 L (1.5-3.5) 10^3/uL [place] # (Auto) 0.4 (0.0-1.0) 10^3/uL Eos # (Auto) 0.0 (0.0-0.7) 10^3/uL Baso # (Auto) 0.0 (0.0-0.1) 10^3/uL Absolute Nucleated RBC 0.00 x10^3/uL Nucleated RBC % 0.0 /100WBC Sodium 136 (135-145) mmol/L Potassium 4.1 (3.5-4.5) mmol/L Chloride 97 L (101-111) mmol/L Carbon Dioxide 30 (21-32) mmol/L Anion Gap 9.0 (6-13) BUN 32 H (6-20) mg/dL Creatinine 1.1 (0.6-1.3) mg/dL Estimated GFR (MDRD) 66 L (>89) Glucose 142 H (74-104) mg/dL Calcium 9.3 (8.5-10.3) mg/dL Procalcitonin Immunoas 0.20 (<0.5) ng/mL Review of Systems Status of ROS: 10 or more systems reviewed and unremarkable except as noted in history and below Exam Exam Vital Signs: Vital Signs x48h Temp Pulse Resp BP Pulse Ox 05/16/25 16:30 36.5 C 58 L 17 166/84 H 95 General: 69-year old male, appears slightly younger than stated age, well developed, well nourished HEENT: Normocephalic, atraumatic, extraocular movement intact, mucous membranes pink and moist, sclera anicteric and not injected Neck: Supple without pain on palpation, mass or bruit Cardiac: Regular rate and rhythm without rub, gallop, or murmur Chest: Clear to auscultation bilaterally Abdomen: Soft, nontender, no bowel sounds, no hepatomegaly, no splenomegaly, tympanic, no peritoneal findings Genitourinary: Deferred Rectal: Deferred Extremities: No gross neurovascular problem, no clubbing, cyanosis or edema Gait: Did not evaluate as the patient was in bed. Psychiatric: Alert and oriented to person place and time, asks and answers questions appropriately, mood and affect appropriate Conclusion/Plan Problem List (1) Acute hypoxemic respiratory failure: (2) Small bowel obstruction: (3) COVID-19: (4) History of right hemicolectomy: (5) History of open sigmoidectomy: Plan I reviewed the CT findings and reading. There is not appear to be a transition zone and in fact there is multiple areas of the small bowel that show some gradual narrowing. This does not appear to be an acute obstructive worrisome bowel obstruction and may in fact be related to either his diagnosis of COVID or possible dehydration and I am hopeful that it will respond to aggressive IV hydration, NG decompression, and increased activity. There is certainly no indication for surgery at this point in time. I will continue to follow. This was discussed with the patient. I like to thank Vickey Velazquez very much for this opportunity to meet this patient and participate in his care. CPT 76446 Lab Results Lab results reviewed: Yes 05/16/25 04:53 05/16/25 04:53
[2025-05-16] MEDS: ENOXAPARIN 40 MG/0.4 ML SYRINGE SUBQ SCH (21:42)
[2025-05-17] MEDS: PHENOL THROAT SPRAY 177 ML MM PRN (00:39)
[2025-05-17 05:16] LABS: HCT - HEMATOCRIT 47.7 % (42.0-52.0); HGB - HEMOGLOBIN 15.6 g/dL (14.0-18.0); MEAN PLATELET VOLUME 10.8 fL (7.4-11.4); NRBC ABSOLUTE COUNT (AUTO) 0.00 x10^3/uL; NUCLEATED RED BLOOD CELLS AUTO 0.0 /100WBC; PLT - PLATELET COUNT 187 10^3/uL (130-450); RED CELL DISTRIBUTION WIDTH 12.2 % (12.0-15.0)
[2025-05-17 05:33] LABS: BUN - BLOOD UREA NITROGEN 36.0 mg/dL (6-20); CARBON DIOXIDE - CO2 33.0 mmol/L (21-32); CREATININE 1.1 mg/dL (0.6-1.3); GFR - MDRD 66.0 (>89)
--- NOTE | 2025-05-17 11:15 | PROVIDER PROGRESS NOTE ---
Subjective Prog Note Date Prog Note Date: 05/17/25 Subjective Pt reports feeling: Improved Subjective: Reports large bowel movement Current Medications Current Medications Current Medications: Current Medications Generic Name Dose Route Start Last Admin Trade Name Freq PRN Reason Stop Dose Admin Acetaminophen 650 mg 05/15/25 20:27 05/16/25 04:29 Acetaminophen 325 Mg Tablet PO 650 mg Q4HR PRN Administration Pain 1 to 4, or Fever Albuterol/Ipratropium 3 ml 05/15/25 20:27 Ipratropium/Albuterol 3 Ml Neb INH Q4HR PRN Wheezing Dexamethasone 6 mg 05/15/25 19:05 05/17/25 08:28 Dexamethasone 4 Mg Tablet PO 6 mg DAILY JON Administration Enoxaparin Sodium 40 mg 05/16/25 21:00 05/17/25 08:28 Enoxaparin 40 Mg/0.4 Ml Syringe SUBQ 40 mg DAILY JON Administration Lactated Ringer's 1,000 mls @ 100 mls/hr 05/15/25 20:27 05/17/25 11:09 Lr IV 100 mls/hr .Q10H JON Administration Morphine Sulfate 2 mg 05/16/25 08:05 05/16/25 08:15 Morphine 2 Mg/Ml Carpuject IVP 2 mg Q4H PRN Administration Severe Pain (Level 7-10) Ondansetron HCl 4 mg 05/15/25 20:27 05/15/25 23:35 Ondansetron Odt 4 Mg Tablet TL 4 mg Q6HR PRN Administration Nausea / Vomiting Ondansetron HCl 4 mg 05/15/25 20:27 05/17/25 05:08 Ondansetron 4 Mg/2 Ml Vial IVP 4 mg Q6HR PRN Administration Nausea / Vomiting Phenol/Menthol 2 sprays 05/17/25 00:32 05/17/25 08:28 Phenol Throat [place] 177 Ml MM 2 sprays Q2HR PRN Administration Throat Pain Prochlorperazine Edisylate 10 mg 05/16/25 07:23 05/16/25 08:16 Prochlorperazine 10 Mg/2 Ml Vial IVP 10 mg Q6HR PRN Administration Nausea / Vomiting Sodium Chloride 10 ml 05/15/25 20:27 Sodium Chloride Flush 0.9% 10 Ml Syringe IVP PRN PRN NEEDED PER PROVIDER ORDERS Sodium Chloride 10 ml 05/16/25 01:00 05/17/25 08:28 Sodium Chloride Flush 0.9% 10 Ml Syringe IVP 10 ml 0100,0900,1700 [facility] Administration Objective Vital Signs/Intake & Output Reviewed Vital Signs: Yes Vital Signs: Vital Signs x48h Temp Pulse Resp BP Pulse Ox 05/17/25 08:27 37.1 C 56 L 16 134/63 H 93 05/17/25 06:00 36.7 C 58 L 20 146/80 H Intake & Output: Intake & Output 05/14/25 05/15/25 05/16/25 05/17/25 23:59 23:59 23:59 23:59 Intake Total 1000 / 1000 1735 / 1735 2059 Output Total 1400 / 1400 Balance 1000 / 1000 335 / 335 2059 Weight (kg) 104.78 kg Objective General Appearance: positive No acute distress and Alert Eyes Bilateral: positive Normal inspection ENT: positive ENT inspection nml Neck: positive Nml inspection Respiratory: positive Chest non-tender Cardiovascular: positive Regular rate & rhythm Abdomen: positive Non-tender and Nml bowel sounds Skin: positive Color nml Extremities: positive Non-tender Neurologic/Psychiatric: positive Oriented x3 Lab Results 05/17/25 04:30 05/17/25 04:30 Other Labs: Lab Results x24hrs 05/17/25 Range/Units 04:30 WBC 5.7 (4.8-10.8) x10^3/uL RBC 4.94 (4.70-6.10) 10^6/uL Hgb 15.6 (14.0-18.0) g/dL Hct 47.7 (42.0-52.0) % MCV 96.6 H (80.0-94.0) fL MCH 31.6 H (27.0-31.0) pg MCHC 32.7 (32.0-36.0) g/dL RDW 12.2 (12.0-15.0) % Plt Count 187 (130-450) 10^3/uL MPV 10.8 (7.4-11.4) fL Neut # (Auto) 4.3 (1.5-6.6) 10^3/uL Lymph # (Auto) 0.7 L (1.5-3.5) 10^3/uL [place] # (Auto) 0.6 (0.0-1.0) 10^3/uL Eos # (Auto) 0.0 (0.0-0.7) 10^3/uL Baso # (Auto) 0.0 (0.0-0.1) 10^3/uL Absolute Nucleated RBC 0.00 x10^3/uL Nucleated RBC % 0.0 /100WBC Sodium 138 (135-145) mmol/L Potassium 3.7 (3.5-4.5) mmol/L Chloride 96 L (101-111) mmol/L Carbon Dioxide 33 H (21-32) mmol/L Anion Gap 9.0 (6-13) BUN 36 H (6-20) mg/dL Creatinine 1.1 (0.6-1.3) mg/dL Estimated GFR (MDRD) 66 L (>89) Glucose 124 H (74-104) mg/dL Calcium 9.2 (8.5-10.3) mg/dL Assessment/Plan Problem List (1) Acute hypoxemic respiratory failure: Impression: Hypoxemic respiratory failure secondary to COVID-19, manage as below O2 as needed 05/17: On room air (2) Small bowel obstruction: Impression: CT abdomen/pelvis on presentation showed small bowel obstruction versus ileus SBFT shows small bowel obstruction Surgery following 05/17: Patient had large bowel movement this morning. His abdominal tenderness is resolved. I am removing his NG tube and starting him on clear liquid diet. Anticipate medical readiness for discharge tomorrow (3) COVID-19: Impression: Tested positive for COVID several days prior to admit Decadron 6 mg p.o. daily DuoNeb as needed Procalcitonin negative Chest x-ray with minimal streaky opacity at the left lung base possibly atelectasis versus infectious/inflammatory 05/17: Patient is now on room air. Will continue Decadron for now
[2025-05-18 04:54] LABS: HCT - HEMATOCRIT 41.0 % (42.0-52.0); HGB - HEMOGLOBIN 13.2 g/dL (14.0-18.0); MEAN PLATELET VOLUME 10.5 fL (7.4-11.4); NRBC ABSOLUTE COUNT (AUTO) 0.00 x10^3/uL; NUCLEATED RED BLOOD CELLS AUTO 0.0 /100WBC; PLT - PLATELET COUNT 166 10^3/uL (130-450); RED CELL DISTRIBUTION WIDTH 12.0 % (12.0-15.0)
[2025-05-18 05:17] LABS: BUN - BLOOD UREA NITROGEN 32.0 mg/dL (6-20); CARBON DIOXIDE - CO2 31.0 mmol/L (21-32); CREATININE 1.0 mg/dL (0.6-1.3); GFR - MDRD 74.0 (>89)
--- NOTE | 2025-05-18 11:28 | Discharge Summary ---
Discharge Summary Admit Date: 05/15/25 Discharge Date: 05/18/25 Discharging Provider: Vickey Velazquez Primary Care Provider: Craig Montejo Code Status: Attempt Resuscitation DIAGNOSES Admission Diagnoses: Acute respiratory failure with hypoxemia Small bowel obstruction COVID-19 Discharge Diagnoses with Status of Each Condition: Acute respiratory failure with hypoxemiasecondary to COVID, resolved Small bowel obstructionresolved nonsurgically COVID-19now day 8 since symptom onset. HPI History of Present Illness: 69-year-old male history of hypertension, colon cancer status post resection x 2 who began experiencing upper respiratory symptoms from COVID 6 days ago. He reported that his upper respiratory symptoms have improved, but starting last night he felt left-sided abdominal pain with significant amount of vomiting and no flatus. He has never had small bowel obstruction before. He reports that he had fevers and chills from his COVID, but those have improved. In the ER, workup was significant for a creatinine of 1.5, up from baseline of 1. No leukocytosis, UA clear. CT abdomen/pelvis was performed which showed small bowel ileus versus obstruction. General surgery was contacted by ER provider, who agrees to follow. Patient was also noted to be hypoxic in the ER, requiring 2 L O2. Hospitalist was contacted for admission for COVID with hypoxia in addition to small bowel obstruction HOSPITAL COURSE Hospital Course: Patient underwent Gastrografin study which showed complete bowel obstruction. NG tube was placed, and his bowel function returned the next day. His diet was escalated from n.p.o. to clear liquid to now regular diet and he is tolerating regular diet. He is being discharged home to follow-up with his PCP. His hypoxemia resolved ALLERGIES Allergies Allergy/AdvReac Type Severity Reaction Status Date / Time Penicillins Allergy Rash Verified 05/15/25 15:04 MEDICATIONS Ambulatory Orders Medication Instructions Recorded Confirmed losartan 50 mg-hydrochlorothiazide 1 ea PO DAILY 08/2005/16/25 12.5 mg tablet (Hyzaar) mecobalamin (vitamin B12) 1,000 1,000 mcg PO DAILY 05/16/25 mcg chewable tablet (B12 Active) rosuvastatin 10 mg tablet (Crestor) 10 mg PO Q48H 08/0205/16/25 cholecalciferol (vitamin D3) 100 100 mcg PO QDAY 03/0205/16/25 mcg (4,000 unit) tablet pyridoxine (vitamin B6) 100 mg 100 mg PO DAILY 5 05/16/25 tablet (Vitamin B-6) PHYSICAL EXAM AT DISCHARGE Vital Signs: Vital Signs x48h Temp Pulse Resp BP Pulse Ox 05/18/25 14:05 36.8 C 58 L 18 120/60 97 05/18/25 08:00 36.5 C 56 L 18 133/70 H 95 General Appearance: positive No acute distress and Alert Eyes Bilateral: positive Normal inspection ENT: positive ENT inspection nml Neck: positive Nml inspection Respiratory: positive Chest non-tender and No respiratory distress Cardiovascular: positive Regular rate & rhythm Peripheral Pulses: positive 2+ Abdomen: positive Non-tender Skin: positive Color nml Extremities: positive Non-tender Neurologic/Psychiatric: positive Oriented x3 LABS 05/18/25 04:26 05/18/25 04:26 DIAGNOSTIC IMAGING Diagnostic Imaging Results: Final report reviewed FOLLOW UP Follow Up: With PCP TIME SPENT Time Spent in Discharge (Minutes): 35 Discharge Plan Discharge Patient Disposition: Home, Self Care Condition: Serious Prescriptions: Continued losartan-hydrochlorothiazide [Hyzaar] 1 EACH tablet 1 ea PO DAILY rosuvastatin [Crestor] 10 MG tablet 10 mg PO Q48H mecobalamin (vitamin B12) [B12 Active] 1,000 MCG tablet,chewable 1,000 mcg PO DAILY pyridoxine (vitamin B6) [Vitamin B-6] 100 mg tablet 100 mg PO DAILY cholecalciferol (vitamin D3) 100 mcg (4,000 unit) tablet 100 mcg PO QDAY Activity Restrictions: No Restrictions Diet: Regular Health Concerns: You came into the hospital and were found to have a small bowel obstruction. This resolved without surgical intervention. He has been able to tolerate a regular diet since then. I am discharging you home. I would like for you to be as active as possible, and have a bland diet for the next few days while you are Recovers. You also have COVID-19 infection that required oxygen while you are in the hospital, For which she was started on steroids. You are now stable without supplemental oxygen, so I am discontinuing steroids given you are now over a week into your COVID infection. I would like for you to follow-up with your PCP regarding further management. I am making no changes to your home medication regimen Print Language: Qatari Patient Instructions: Small Bowel Obstruction Stand Alone Forms: PCP List Follow-up Care: CRAIG MONTEJO MD [Primary Care Provider, Family Practice] Vitals documented within 30 minutes of discharge?: Yes (See DC VS)
[2025-05-18 14:06] VITALS: BP 120/60; TEMP 98.2; O2SAT 97
== END 2025-05-18 14:20 | disposition home or self-care (01) | DRG 189 ==
LOC: ED 15:00 → MS3 19:12
PROVIDERS: ADMIT Nurse Practitioner Acute Care; ATTEND Nurse Practitioner Acute Care